=== PATIENT | female | born 1950 | race Caucasian/White ===

== ENCOUNTER 2017-05-01 12:02 | Emergency (ER) | END 2017-05-01 18:17 | disposition home or self-care (01) ==

== ENCOUNTER 2018-07-01 08:16 | Emergency (ER) | payer MEDICARE, OTHER ==
[~2018-07-01] VITALS: Wt 54.5 kg
[~2018-07-01 08:16] MED LIST: HYDR-3498 PO; HYDR200T39 PO; IBUP-1542 PO; LEVO125T58; METH2.5T33; SULF500T45 PO
[2018-07-01] MEDS ORDERED: SOD CHLORIDE 0.9% 1,000 ML IV STA (09:41)
[2018-07-01] MEDS ORDERED: HYDROmorphONE 1 MG/ML SYG IV STA (09:41)
[2018-07-01] MEDS ORDERED: ONDANSETRON 4 MG INJ IV STA (09:41)
--- NOTE | 2018-07-01 09:48 | ERD ---
ER Documentation Chief Complaint Chief Complaint mickey churchill with diarrhea x 4 days HPI This is a 67-year-old female complaining of diffuse abdominal cramps with nausea vomiting diarrhea nonbilious nonbloody for the past 4 days. She says she is unable to tolerate eating but says she does she will get diarrhea and vomiting. There is no blood in her diarrhea. She has also a dull diffuse headache. No fever no dysuria no back pain no prior abdominal surgeries ROS All systems reviewed and are negative except as per history of present illness. Medications Home Meds Active Scripts Ibuprofen* (Motrin*) 600 Mg Tab, 600 MG PO Q6H PRN for PAIN AND OR ELEVATED TEMP, #30 TAB Prov:SILVIO PERSAUD MD 05/01/17 Hydrocodone Bit-Acetaminophen* (Addison*) 5-325 Mg Tab, 1 TAB PO Q6 PRN for SEVERE PAIN LEVEL 7-10, #7 TAB Prov:ROGELIO OMALLEY NP 09/16/15 Ibuprofen* (Motrin*) 600 Mg Tab, 600 MG PO Q6H PRN for PAIN AND OR ELEVATED TEMP, #30 TAB Prov:ROGELIO OMALLEY NP 09/16/15 Reported Medications Sulfasalazine (Azulfidine) 500 Mg Tab, 500 MG PO BID 11/25/11 Hydroxychloroquine Sulfate* (Hydroxychloroquine Sulfate*) 200 Mg Tablet, 200 MG PO DAILY 11/25/11 Methotrexate Sodium (Methotrexate) 2.5 Mg Tablet 10/06/10 Levothyroxine Sodium (Levothroid) 125 Mcg Tablet, DAILY 10/06/10 Allergies Allergies: Coded Allergies: No Known Drug Allergies (Verified Allergy, Unknown, 05/01/17) PMhx/Soc History of Surgery: Yes (breast sx) Hx Neurological Disorder: No Hx Respiratory Disorders: No Hx Cardiac Disorders: Yes (DVT 1 YR AGO) Hx Psychiatric Problems: No Hx Miscellaneous Medical Probl: No Hx Alcohol Use: No Hx Substance Use: No Hx Tobacco Use: No FmHx Family History: No coronary disease Physical Exam Vitals Vital Signs Date Temp Pulse Resp B/P (MAP) Pulse Ox O2 O2 Flow FiO2 Time Delivery Rate 07/01/18 58 17 138/72 100 Room Air 10:58 (94) 07/01/18 98.6 91 18 147/67 97 08:21 (93) Physical Exam Const: Well-developed, well-nourished Head: Atraumatic, normocephalic Eyes: Normal Conjunctiva, PERRLA, EOMI, normal sclera, no nystagmus ENT: Normal External Ears, Nose and Mouth, moist mucus membranes. Neck: Full range of motion. No meningismus, no lymphadenopathy. Resp: Clear to auscultation bilaterally, no wheezing, rhonchi, rales Cardio: Regular rate and rhythm, no murmurs, S1 S2 present Abd: Soft, diffuse mild tenderness, non distended. Normal bowel sounds, no guarding or rebound, no pulsitile abdominal masses or bruits Skin: No petechiae or rashes, no ecchymosis , no maculopapular rash Back: No midline or flank tenderness Ext: No cyanosis, or edema, FROM x 4, normal inspection, neurovascularly intact x 4 Neur: Awake and alert, STR 5/5 x 4, sensation intact x 4, no focal findings, cerebellum intact Psych: Normal Mood and Affect Result Diagram: 07/01/18 1015 07/01/18 1015 Results 24 hrs Laboratory Tests Test 07/01/18 10:15 White Blood Count 4.9 10^3/ul Red Blood Count 4.20 10^6/ul Hemoglobin 12.8 g/dl Hematocrit 39.6 % Mean Corpuscular Volume 94.3 fl Mean Corpuscular Hemoglobin 30.5 pg Mean Corpuscular Hemoglobin Concent 32.3 g/dl Red Cell Distribution Width 14.6 % Platelet Count 189 10^3/UL Mean Platelet Volume 11.3 fl Immature Granulocytes % 0.200 % Neutrophils % 41.6 % Lymphocytes % 43.7 % Monocytes % 12.7 % Eosinophils % 1.4 % Basophils % 0.4 % Nucleated Red Blood Cells % 0.0 /100WBC Immature Granulocytes # 0.010 10^3/ul Neutrophils # 2.0 10^3/ul Lymphocytes # 2.1 10^3/ul Monocytes # 0.6 10^3/ul Eosinophils # 0.1 10^3/ul Basophils # 0.0 10^3/ul Nucleated Red Blood Cells # 0.0 10^3/ul Sodium Level 140 mmol/L Potassium Level 4.8 mmol/L Chloride Level 107 mmol/L Carbon Dioxide Level 23 mmol/L Anion Gap 10 Blood Urea Nitrogen 8 mg/dl Creatinine 0.51 mg/dl Est Glomerular Filtrat Rate mL/min > 60 mL/min Glucose Level 95 mg/dl Calcium Level 9.0 mg/dl Total Bilirubin 0.3 mg/dl Direct Bilirubin 0.00 mg/dl Indirect Bilirubin 0.3 mg/dl Aspartate Amino Transf (AST/SGOT) 34 IU/L Alanine Aminotransferase (ALT/SGPT) 47 IU/L Alkaline Phosphatase 69 IU/L Total Protein 7.3 g/dl Albumin 4.0 g/dl Globulin 3.30 g/dl Albumin/Globulin Ratio 1.21 Lipase 73 U/L Current Medications Medications Dose Sig/Lucrecia Start Time Status Last (Trade) Ordered Route PRN Stop Time Admin Dose Reason Admin Sodium 1,000 ml @ Q1H STAT 07/01/18 DC 07/01/18 Chloride 1,000 mls/hr IV 09:41 09:49 07/01/18 10:40 1 mg ONCE STAT 07/01/18 DC 07/01/18 Hydromorphone IV 09:41 09:50 HCl 07/01/18 09:42 (Dilaudid) Ondansetron 4 mg ONCE STAT 07/01/18 DC 07/01/18 HCl (Zofran IV 09:41 09:51 Inj) 07/01/18 09:42 Iohexol 150 ml STK-MED 07/01/18 DC (Omnipaque ONCE .ROUTE 11:08 300mg/ ml) 07/01/18 11:09 Sodium 100 ml @ ud STK-MED 07/01/18 DC Chloride ONCE .ROUTE 11:08 07/01/18 11:09 IV Flush 10 ml STK-MED 07/01/18 DC (NS 10 ml) ONCE .ROUTE 11:08 07/01/18 11:09 Procedures/MDM Ordering MD: URVASHI MICHELLE DO Location: E/R Room/Bed: PROCEDURE: CT Abdomen and Pelvis with intravenous contrast. CLINICAL INDICATION: Abdominal pain.. TECHNIQUE: CT scan of the abdomen and pelvis with intravenous contrast was performed on the multi-slice CT scanner. The patient was scanned following the uncomplicated intravenous administration of 90 cc of Omnipaque-300 contrast. Coronal and sagittal reformatted images were obtained from the axial source images. Images were reviewed on a high-resolution PACS workstation. DICOM images are available. Total DLP = 641.7 mGy-cm. CTDIvol = 12.5 mGy. One or more of the following dose reduction techniques were used: Automated exposure control. Adjustment of the mA and/or kV according to patient size. Use of iterative reconstruction technique. COMPARISON: None FINDINGS: Lower thorax: Normal. Liver: Normal. No focal mass. Biliary: Normal gallbladder. No biliary dilatation. Pancreas: Normal. Spleen: Normal. Adrenal Glands: Normal. Genitourinary: Normal. Gastrointestinal: Normal. Lymph nodes: Normal. Vascular: Normal. Peritoneum/mesentery: Normal. No free fluid or free air. Reproductive organs: Small calcified fibroids in the uterus. Musculoskeletal: Degenerative disk changes of the spine are present. There is mild dextrocurvature of the lumbar spine. Status post right mastectomy IMPRESSION: 1. Small calcified uterine fibroids. 2. Mild dextrocurvature of the lumbar spine with degenerate disc changes. 3. Status post right mastectomy. 4. Otherwise unremarkable contrast enhanced CT abdomen and pelvis without acute pathology identified. RPTAT: [facility] .Andres Correa MD MD Date Time Electronically viewed and signed by .Andres Correa MD, MD on 07/01/2018 11:46 .L/ CC: URVASHI MICHELLE DO [id number] The patient's labs are relatively unremarkable. Her CAT scan is also unremarkable. She likely has she likely has gastroenteritis will treat symptomatically discharged home in stable condition Patient feels much better at this time, and vital signs are normal, symptoms have improved. I did give strict instructions to return to the ED if symptoms continue or worsen, patient will otherwise follow-up with primary care physician. Patient understood instructions and agreed to plan. Disclaimer: Inadvertent spelling and grammatical errors are likely due to EHR/dictation software use and do not reflect on the overall quality of patient care. Also, please note that the electronic time recorded on this note does not necessarily reflect the actual time of the patient encounter. Departure Diagnosis: Primary Impression: Gastroenteritis Condition: Stable URVASHI MICHELLE DO Jul 01, 2018 09:48
[2018-07-01 10:58] VITALS: BP 138/72; PULSE 58; RESP 17
[2018-07-01] MEDS ORDERED: SOD CHLORIDE 0.9% 100 ML ONE (11:08)
[2018-07-01] MEDS ORDERED: IOHEXOL 300MG/ML 150 ML BTL ONE (11:08)
[2018-07-01] MEDS ORDERED: DIPH1TAB PO (12:15)
[2018-07-01] MEDS ORDERED: DICY10CA40 PO (12:15)
[2018-07-01] MEDS ORDERED: ONDA4TAB14 PO (12:15)
== END 2018-07-01 13:29 | disposition home or self-care (01) ==
LOC: E/R 08:16
DX: K52.9 Noninfective gastroenteritis and colitis, unspecified (principal)
CPT/HCPCS: 36415; 74177; 80053; 83690; 85025; 96374; 96375; 99285; J1170; J2405; J7030; Q9967